=== PATIENT | female | born 1940 ===

== ENCOUNTER → 2025-03-17 11:44 | Outpatient (REF) | payer MEDICARE, SELFPAY ==
[2025-03-17 17:17] LABS: Urine Character Clear (Clear)
[2025-03-17 17:30] LABS: Urine Squamous Cell 0-2 /LPF (Few)
[2025-03-17 17:31] LABS: Urine White Cell 30-40 /HPF (0-5)
== END ==
LOC: OLABLV 11:44
PROVIDERS: ATTENDING PHYSICIAN Family Medicine
DX: N39.0 Urinary tract infection, site not specified (principal)
CPT/HCPCS: 81003; 81015; 87077; 87086